=== PATIENT | male | born 1960 | race Caucasian/White ===

== ENCOUNTER 2021-04-10 20:09 | Inpatient (IN) | payer MEDICAID ==
[~2021-04-10] VITALS: Ht 180.3 cm; Wt 77.6 kg
[2021-04-10] MEDS ORDERED: SODIUM CHLORIDE 0.9% 1,000 ML IV ONE (20:45)
[2021-04-10 22:33] LABS: HEMATOCRIT. 36.6 % (42.0-52.0); HEMOGLOBIN. 12.6 g/dL (14.0-18.0); MEAN CORPUSCULAR HEMOGLOBIN 29.2 pg (28.0-32.0); MEAN PLATELET VOLUME 8.2 fl (7.4-10.4); PLATELET 269 x1000/uL (130-400); RED BLOOD CELL COUNT 4.31 mill/uL (4.7-6.1); RED CELL DISTRIBUTION WIDTH 14.3 % (11.6-14.6)
[2021-04-10 22:38] LABS: CHLORIDE 108 mEq/L (98-107)
[2021-04-10 23:12] LABS: PLATELET ESTIMATE NORMAL
[2021-04-11] MEDS ORDERED: SACU1TAB PO (03:04)
[2021-04-11] MEDS ORDERED: ASPI-1497 PO (03:04)
[2021-04-11] MEDS ORDERED: CARV3.1242 PO (03:04)
[2021-04-11] MEDS ORDERED: FURO-152 PO (03:04)
[2021-04-11] MEDS ORDERED: ATOR10TA PO (03:04)
[2021-04-11 03:12] VITALS: BP 101/65
[2021-04-11 04:00] VITALS: BP_SYST 107; BP_SYST 88; BP_SYST 91; BP_DIAS 49; BP_DIAS 55; BP_DIAS 70
[2021-04-11 08:00] VITALS: BP 111/69
[2021-04-11] MEDS: ASPIRIN 81MG TABLET PO SCH (09:26)
[2021-04-11] MEDS: ENOXAPARIN 40MG/0.4ML SYR SUBCUT SCH (09:26)
[2021-04-11 10:06] LABS: HEMATOCRIT. 36.8 % (42.0-52.0); HEMOGLOBIN. 12.5 g/dL (14.0-18.0); MEAN CORPUSCULAR HEMOGLOBIN 29.7 pg (28.0-32.0); MEAN PLATELET VOLUME 8.4 fl (7.4-10.4); PLATELET 256 x1000/uL (130-400); RED BLOOD CELL COUNT 4.22 mill/uL (4.7-6.1); RED CELL DISTRIBUTION WIDTH 14.6 % (11.6-14.6)
[2021-04-11 10:28] LABS: CHLORIDE 107 mEq/L (98-107)
[2021-04-11 10:37] LABS: CREATINE KINASE 72 IU/L (39-308)
[2021-04-11 10:39] LABS: CREATINE KINASE MB FRACTION 1.4 ng/mL (0.5-3.6)
[2021-04-11 12:00] VITALS: BP_SYST 105; BP_SYST 108; BP_SYST 89; BP_DIAS 55; BP_DIAS 59; BP_DIAS 70
[2021-04-11 16:00] VITALS: BP 108/57
[2021-04-11 16:18] LABS: CREATINE KINASE 62 IU/L (39-308)
[2021-04-11 16:20] LABS: CREATINE KINASE MB FRACTION < 1.0 ng/mL (0.5-3.6)
[2021-04-11 16:35] LABS: PLATELET ESTIMATE NORMAL
[2021-04-11] MEDS ORDERED: NON FORMULARY PATIENT HOME MED XX SCH (17:30)
[2021-04-11] MEDS ORDERED: ONDANSETRON HCL 4MG/2ML INJ IV PRN (17:45)
[2021-04-11] MEDS ORDERED: HYDROCODONE/ACETAMINOPHEN 5/325MG TABLET PO PRN (17:45)
[2021-04-11] MEDS ORDERED: LORAZEPAM 0.5MG TABLET PO PRN (17:45)
[2021-04-11] MEDS ORDERED: IPRATROPIUM/ALBUTEROL 0.5-3(2.5)MG/3ML NEB HHN PRN (17:45)
[2021-04-11] MEDS ORDERED: ACETAMINOPHEN 325MG TABLET PO PRN ×2 (17:45)
[2021-04-11] MEDS ORDERED: CLONIDINE 0.1MG TABLET PO PRN (17:45)
[2021-04-11] MEDS ORDERED: DOCUSATE SODIUM 100MG CAPSULE PO PRN (17:45)
[2021-04-11] MEDS: ATORVASTATIN CALCIUM 10MG TABLET PO SCH (17:56)
[2021-04-11] MEDS: FUROSEMIDE 20MG TABLET PO SCH (17:57)
[2021-04-11] MEDS ORDERED: NALOXONE HCL 0.4MG/ML VIAL IV PRN (18:00)
[2021-04-11] MEDS ORDERED: SACU1TAB MT (18:30)
[2021-04-11] MEDS ORDERED: HYDR-3992 PO (18:30)
[2021-04-11] MEDS ORDERED: CLON0.1T PO (18:30)
[2021-04-11] MEDS ORDERED: FAMO-135 PO (18:30)
[2021-04-11] MEDS ORDERED: SPIR25TA6 PO (18:30)
[2021-04-11] MEDS ORDERED: ACET-2708 MT (18:30)
[2021-04-11 20:00] VITALS: BP_SYST 84; BP_SYST 88; BP_SYST 93; BP_DIAS 53; BP_DIAS 54; BP_DIAS 68
[2021-04-12] VITALS: BP 100/55
[2021-04-12 04:00] VITALS: BP 99/57
[2021-04-12 05:15] LABS: HEMATOCRIT. 36.9 % (42.0-52.0); HEMOGLOBIN. 12.5 g/dL (14.0-18.0); MEAN CORPUSCULAR HEMOGLOBIN 29.4 pg (28.0-32.0); MEAN CORPUSCULAR VOLUME 86.7 fL (80.0-94.0); MEAN PLATELET VOLUME 8.2 fl (7.4-10.4); PLATELET 265 x1000/uL (130-400); RED BLOOD CELL COUNT 4.26 mill/uL (4.7-6.1); RED CELL DISTRIBUTION WIDTH 14.6 % (11.6-14.6)
[2021-04-12 05:25] LABS: CHLORIDE 109 mEq/L (98-107)
[2021-04-12 08:00] VITALS: BP_SYST 113; BP_SYST 116; BP_SYST 122; BP_DIAS 67; BP_DIAS 70; BP_DIAS 77
[2021-04-12] MEDS: ASPIRIN 81MG TABLET PO SCH (09:13)
[2021-04-12] MEDS: FUROSEMIDE 20MG TABLET PO SCH (09:13)
[2021-04-12] MEDS: ATORVASTATIN CALCIUM 10MG TABLET PO SCH (09:13)
[2021-04-12] MEDS: ENOXAPARIN 40MG/0.4ML SYR SUBCUT SCH (09:14)
[2021-04-12 11:05] LABS: T4 FREE 0.9 ng/dL (0.76-1.46)
[2021-04-12 12:00] VITALS: BP 130/47
[2021-04-12 14:44] LABS: CLARITY URINE CLEAR (CLEAR); COLOR URINE YELLOW (YELLOW); KETONES URINE NEGATIVE (NEGATIVE); LEUKOCYTE ESTERASE URINE NEGATIVE (NEGATIVE); NITRITE URINE NEGATIVE (NEGATIVE); OCCULT BLOOD URINE NEGATIVE (NEGATIVE); PH URINE 5.5 (4.5-8.0); PROTEIN URINE NEGATIVE (NEGATIVE); SPECIFIC GRAVITY URINE 1.012 (1.005-1.030); UROBILINOGEN URINE 0.2 E.U./dL (0.2-1.0)
[2021-04-12 14:56] LABS: METHADONE URINE SCREEN NEGATIVE (NEGATIVE)
[2021-04-12 14:57] LABS: *AMPHETAMINES SCREEN URINE NEGATIVE (NEGATIVE); *BARBITURATES SCREEN URINE NEGATIVE (NEGATIVE); *BENZODIAZEPINES SCREEN URINE NEGATIVE (NEGATIVE); *COCAINE SCREEN URINE NEGATIVE (NEGATIVE); CANNABINOID URINE SCREEN NEGATIVE (NEGATIVE); PHENCYCLIDINE URINE SCREEN NEGATIVE (NEGATIVE)
[2021-04-12 14:58] LABS: OPIATES URINE SCREEN NEGATIVE (NEGATIVE)
[2021-04-12 16:00] VITALS: BP 125/50
[2021-04-12 20:00] VITALS: BP_SYST 107; BP_SYST 113; BP_SYST 115; BP_DIAS 66; BP_DIAS 71; BP_DIAS 79
[2021-04-12] MEDS ORDERED: ATORVASTATIN CALCIUM 40MG TABLET PO SCH (21:00)
[2021-04-12 21:04] LABS: PLATELET ESTIMATE NORMAL
[2021-04-13] VITALS: BP 104/59
[2021-04-13 04:00] VITALS: BP 116/74
[2021-04-13 08:00] VITALS: BP 127/70
[2021-04-13] MEDS: FUROSEMIDE 20MG TABLET PO SCH (08:42)
[2021-04-13] MEDS: ASPIRIN 81MG TABLET PO SCH (08:42)
[2021-04-13] MEDS: ENOXAPARIN 40MG/0.4ML SYR SUBCUT SCH (08:43)
[2021-04-13] MEDS ORDERED: FURO20TA4 PO (11:57)
[2021-04-13] MEDS ORDERED: ATOR10TA69 MT (11:57)
[2021-04-13] MEDS ORDERED: LOSA25TA26 MT (11:57)
[2021-04-13 12:00] VITALS: BP 125/80
[2021-04-13 14:11] VITALS: BP 125/80
[2021-04-13 15:41] VITALS: BP 124/75
== END 2021-04-13 16:10 | disposition home or self-care (01) | DRG 204 ==
LOC: ER 20:09 → EDBEDREQTM 23:37 → EDBEDREQ 23:37 → ENRESERV 23:45 → 7EST 04-11 01:44
PROVIDERS: ADMIT Internal Medicine; ATTEND Internal Medicine
DX: I95.1 Orthostatic hypotension (principal); I42.0 Dilated cardiomyopathy; I50.22 Chronic systolic (congestive) heart failure; I11.0 Hypertensive heart disease with heart failure; E78.5 Hyperlipidemia, unspecified; F19.90 Other psychoactive substance use, unspecified, uncomplicated; R00.1 Bradycardia, unspecified; T46.5X5A Adverse effect of other antihypertensive drugs, initial encounter; Z79.82 Long term (current) use of aspirin; Z79.899 Other long term (current) drug therapy; Z87.891 Personal history of nicotine dependence; Y92.89 Other specified places as the place of occurrence of the external cause
CPT/HCPCS: 36415; 80048; 80053; 80305; 81003; 82550; 82553; 83735; 83880; 84439; 84443; 84481; 84484; 85025; 85379; 93005; 93306; 93880; 97162; 97165; 99285; J1650; J7030